=== PATIENT | female | born 2000 | race Caucasian/White ===

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

== ENCOUNTER 2020-10-01 10:03 | Emergency (ER) | payer BC, MEDICAID ==
[2020-10-01 10:17] VITALS: BP 157/98
[2020-10-01 10:44] LABS: BASO # 0.05 (0.02-0.10); EOS # 0.06 (0.04-0.40); EOS % 0.7 % (0.1-4.0); HEMATOCRIT 43.1 % (35.0-45.0); HEMOGLOBIN 14.3 g/dL (12.0-15.0); LYMPH# 1.71 (1.20-3.40); MEAN CELL VOLUME 81 fl (78-95); MEAN CORPUSCULAR HEMOGLOBIN 27 pg (26-32); MEAN CORPUSCULAR HGB CONC 33 g/dL (33-37); MEAN PLATELET VOLUME 8.5 fl (7.4-10.4); MONO # 0.59 (0.10-0.60); NEU # 5.77 (1.40-6.50); PLATELET COUNT 432 K/mm3 (130-400); RED BLOOD COUNT 5.34 M/mm3 (4.10-5.30); RED CELL DISTRIBUTION WIDTH 12.1 % (11.5-14.5); WHITE BLOOD COUNT 8.2 K/mm3 (4.8-10.8)
[2020-10-01 10:54] LABS: ALBUMIN 4.1 g/dL (3.5-5.0); POTASSIUM 3.8 mmol/L (3.5-5.1)
[2020-10-01 10:55] LABS: CALCIUM 9.4 mg/dL (8.3-10.5)
[2020-10-01 10:56] LABS: GLUCOSE 104 mg/dL (65-105); SODIUM 139 mmol/L (136-145)
[2020-10-01 10:57] LABS: CARBON DIOXIDE 24 mmol/L (22-29)
[2020-10-01 10:58] LABS: TOTAL BILIRUBIN 0.2 mg/dL (0.2-1.2)
[2020-10-01 10:59] LABS: TOTAL PROTEIN 7.7 g/dL (6.4-8.3)
[2020-10-01 11:00] LABS: ALCOHOL IN-HOUSE < 10 mg/dL (<10)
[2020-10-01 11:02] LABS: AST-SGOT 21 U/L (5-34)
[2020-10-01 11:03] LABS: ALT/SGPT 26 U/L (0-55)
[2020-10-01 11:04] LABS: ACETAMINOPHEN < 1 ug/mL
[2020-10-01 11:24] LABS: URINE APPEARANCE CLOUDY; URINE COLOR YELLOW
[2020-10-01 11:25] LABS: URINE BILIRUBIN NEGATIVE (NEGATIVE); URINE BLOOD 50 ery/uL (NEGATIVE); URINE GLUCOSE NEGATIVE (NEGATIVE); URINE KETONE NEGATIVE (NEGATIVE); URINE LEUKOCYTE ESTERASE NEGATIVE (NEGATIVE); URINE MUCUS PRESENT (NOT PRESENT); URINE NITRATE NEGATIVE (NEGATIVE); URINE PROTEIN(semi-quant) NEGATIVE (NEGATIVE); URINE UROBILINOGEN NORMAL (NORMAL)
== END 2020-10-01 13:28 | disposition home or self-care (01) ==
LOC: ED 10:03
PROVIDERS: Family Medicine; Nurse Practitioner
DX: F39 Unspecified mood [affective] disorder (principal); R45.851 Suicidal ideations; F32.9 Major depressive disorder, single episode, unspecified

== ENCOUNTER → 2020-10-15 | Outpatient (CLI) | payer BC, MEDICAID | LOC: RAD 14:26 | DX: R10.9 Unspecified abdominal pain (principal) ==

== ENCOUNTER → 2021-03-19 | Outpatient (CLI) | payer BC, MEDICAID | LOC: LAB 14:46 | DX: N92.6 Irregular menstruation, unspecified (principal) ==

== ENCOUNTER → 2023-05-21 | Outpatient (CLI) | payer BC, MEDICAID ==
[~2023-05-21] MED LIST: AMOXICILLIN AND1 TA2 PO
[2023-05-21 15:09] LABS: CLUE CELLS OBSERVED (Not Observd)
== END ==
LOC: LAB 14:37
PROVIDERS: Nurse Practitioner Family
DX: Z20.2 Contact with and (suspected) exposure to infections with a predominantly sexual mode of transmission (principal)
CPT/HCPCS: Q0111

== ENCOUNTER → 2023-12-07 | Outpatient (CLI) | payer BC ==
[2023-12-07 15:18] LABS: URINE WBC 0 /hpf (0-3)
[2023-12-07 16:13] LABS: PH-URINE 5.5 (5.0 - 8.0); URINE APPEARANCE CLEAR (CLEAR); URINE BILIRUBIN NEGATIVE (NEGATIVE); URINE BLOOD 1+ (NEGATIVE); URINE COLOR YELLOW (YELLOW); URINE GLUCOSE NEGATIVE (NEGATIVE); URINE KETONE NEGATIVE (NEGATIVE); URINE LEUKOCYTE ESTERASE NEGATIVE (NEGATIVE); URINE NITRATE NEGATIVE (NEGATIVE); URINE PROTEIN(semi-quant) NEGATIVE (NEGATIVE)
[2023-12-07 16:14] LABS: URINE MUCUS PRESENT (NOT PRESENT)
[2023-12-07 16:16] LABS: CLUE CELLS NOT OBSERVED (Not Observd)
== END ==
LOC: LAB 15:10
PROVIDERS: Nurse Practitioner Family
DX: R10.30 Lower abdominal pain, unspecified (principal); R35.0 Frequency of micturition
CPT/HCPCS: Q0111

== ENCOUNTER 2024-01-10 11:04 | Emergency (ER) | payer BC ==
[~2024-01-10] VITALS: Ht 160 cm; Wt 100.0 kg
[2024-01-10 11:58] LABS: BASO # 0.03 K/mm3 (0.02-0.10); EOS # 0.05 K/mm3 (0.04-0.40); EOS % 0.5 % (1.0-5.0); HEMATOCRIT 43.5 % (37.0-47.0); HEMOGLOBIN 14.3 g/dL (12.5-16.0); LYMPH# 2.21 K/mm3 (1.50-4.00); MEAN CELL VOLUME 81 fl (78-100); MEAN CORPUSCULAR HEMOGLOBIN 27 pg (27-31); MEAN CORPUSCULAR HGB CONC 33 g/dL (33-37); MEAN PLATELET VOLUME 8.3 fl (7.4-10.4); MONO # 0.69 K/mm3 (0.20-0.80); NEU # 6.37 K/mm3 (1.40-6.50); PLATELET COUNT 423 K/mm3 (130-400); RED BLOOD COUNT 5.39 M/mm3 (4.10-5.30); RED CELL DISTRIBUTION WIDTH 12.2 % (11.5-14.5); WHITE BLOOD COUNT 9.4 K/mm3 (4.8-10.8)
[2024-01-10 12:03] LABS: ALBUMIN 4.1 g/dL (3.5-5.0)
[2024-01-10 12:05] LABS: CALCIUM 9.8 mg/dL (8.3-10.5)
[2024-01-10 12:06] LABS: TOTAL PROTEIN 7.7 g/dL (6.4-8.3)
[2024-01-10 12:08] LABS: TOTAL BILIRUBIN 0.3 mg/dL (0.2-1.2)
[2024-01-10] MEDS ORDERED: Iohexol 300 - 100 ML VIAL IV ONE (12:39)
[2024-01-10 13:45] VITALS: BP 106/69
== END 2024-01-10 13:45 | disposition home or self-care (01) ==
LOC: ED 11:04
PROVIDERS: Physician Assistant
DX: K57.90 Diverticulosis of intestine, part unspecified, without perforation or abscess without bleeding (principal)
CPT/HCPCS: Q9967

== ENCOUNTER → 2024-01-28 | Outpatient (CLI) | payer BC ==
[2024-01-28 17:11] LABS: CLUE CELLS NOT OBSERVED (Not Observd)
== END ==
LOC: LAB 16:42
PROVIDERS: Nurse Practitioner
DX: L65.9 Nonscarring hair loss, unspecified (principal); N89.8 Other specified noninflammatory disorders of vagina
CPT/HCPCS: Q0111